=== PATIENT | male | born 1960 | race Caucasian/White ===

== ENCOUNTER → 2017-09-26 | Day surgery (SDC) | payer BC ==
[2017-09-22 12:48] LABS: BASOPHILS # (AUTO) 0.1 (0.0-0.1); EOSINOPHILS # (AUTO) 0.4 (0.0-0.4); EOSINOPHILS % 3.6 % (0.0-6.0); HEMATOCRIT 47.3 % (38.2-49.6); HEMOGLOBIN 16.2 g/dL (14.0-18.0); LYMPHOCYTES # (AUTO) 2.5 (1.0-3.2); LYMPHOCYTES % 21.9 % (18.0-39.1); MEAN CORPUSCULAR HEMOGLOBIN 31.6 pg (28-32); MEAN CORPUSCULAR HGB CONC 34.2 g/dL (31-35); MEAN CORPUSCULAR VOLUME 92.4 fL (81-99); MONOCYTES # (AUTO) 1.3 (0.2-0.8); MONOCYTES % 11.4 % (4.4-11.3); NEUTROPHILS # (AUTO) 6.9 (2.1-6.9); NEUTROPHILS % 61.5 % (38.7-80.0); PLATELET COUNT 236 x10e3/uL (140-360); RED BLOOD COUNT 5.12 x10e6/uL (4.3-5.7); RED CELL DISTRIBUTION WIDTH 13.7 % (11.7-14.4)
--- NOTE | 2017-09-22 13:39 | Diagnostic Imaging Report ---
EXAMINATION: CHEST 2 VIEWS INDICATION: \S\PRE ADMIT \[id number] \S\[id number] COMPARISON: None FINDINGS: PA and lateral views TUBES and LINES: None. LUNGS: Limited by body habitus. Lungs are well inflated. Lungs are clear. There is no evidence of pneumonia or pulmonary edema. PLEURA: No pleural effusion or pneumothorax. HEART AND MEDIASTINUM: The cardiomediastinal silhouette is unremarkable. BONES AND SOFT TISSUES: No acute osseous lesion. Soft tissues are unremarkable. UPPER ABDOMEN: No free air under the diaphragm. IMPRESSION: No acute thoracic abnormality. Signed by: Dr. Alpesh Garg MD on 09/22/2017 1:35 PM
[~2017-09-26] MED LIST: ASPIRIN81 MG; ATORVASTATIN CA10 MG PO; BRILINTA90 MG; CLINDAMYCIN 600MG/D5W 50ML 50 ML IV ONE; DEXAMETHASONE SOD PHOS INJ 4 MG/ML VIAL ONE; FENTANYL CITRATE/PF 100MCG/2 ML INJ ONE; GLYCOPYRROLATE INJ 1MG/ 5 ML SYR ONE; KETAMINE HCL INJ 50 MG/ML 10 ML VIAL ONE; KETOROLAC TROMETHAMINE 30 MG/ML VIAL ONE; LIDOCAINE HCL 2% LOCAL INJ 5 ML SDV VIAL INJ ONE; LOSARTAN POTASS25 MG; METOPROLOL; MIDAZOLAM HCL 2 MG/2 ML VIAL ONE; ONDANSETRON HCL INJ 2 MG/ML VIAL ONE; PHENTERMINE HCL15 MG; PROPOFOL IV EMULSION 10 MG/ML 20 ML VIAL ONE; SEVOFLURANE INHAL SOLN 250 ML PEN BTL ONE; TAMSULOSIN HCL0.4 MG
--- NOTE | 2017-09-26 10:41 | Operative Report ---
DATE OF PROCEDURE: September 26, 2017 [employer]: Jeremy Dorantes PA-C The patient was brought to the operating room for induction of anesthesia. Throughout this case, my PA's assistance was necessary for retraction of soft tissue and positioning of the extremity. This allows for efficient and technically successful execution of the operation and is considered medically necessary. PREOPERATIVE DIAGNOSIS: Bilateral carpal tunnel syndrome. POSTOPERATIVE DIAGNOSIS: Bilateral carpal tunnel syndrome. PROCEDURE: Bilateral endoscopic carpal tunnel release. INDICATIONS: The patient is a 56-year-old gentleman with clinic signs and symptoms consistent with bilateral carpal tunnel syndrome. He has failed conservative management and would like to proceed with definitive intervention. The risks and benefits of the procedure have been explained. He states he understands and wishes to proceed. DESCRIPTION OF PROCEDURE: The patient was brought to the operating room and placed under general anesthetic. Both upper extremities were prepped and draped in a sterile manner. Initial attention was directed towards the right side. A preoperative time out was performed. Extremity was exsanguinated, and a proximal tourniquet was inflated to 250 mmHg. An incision was made over the flexion crease of the right wrist. The palmaris longus was retracted to the radial side of the wound. The flexor retinaculum was elevated and incised. An elevator was used to tease the tenosynovium off of the undersurface of the transverse carpal ligament. Dilators were placed, and the hook of the hamate was palpated. The Micro[employer] endoscope was then placed into the carpal tunnel. The undersurface of the transverse carpal ligament was cleanly visualized without evidence of soft-tissue interposition. The knife was deployed, and the ligament was cut from distal to proximal. I made sure that a full-thickness cut was accomplished. The proximal retinaculum was incised under direct visualization with a pair of tenotomy scissors. The incision was closed with 2 interrupted nylon stitches. A sterile bandage was applied. The tourniquet was deflated. The same procedure was then performed on the left side. The patient was then extubated and transported to the recovery room in stable condition. There was no blood loss, and all needle and sponge counts were correct. Job#: [id number]
== END | disposition home or self-care (01) ==
LOC: OR 08:17
PROVIDERS: ATTEND Specialist
DX: G56.03 Carpal tunnel syndrome, bilateral upper limbs (principal); G47.33 Obstructive sleep apnea (adult) (pediatric); I25.10 Atherosclerotic heart disease of native coronary artery without angina pectoris; I25.2 Old myocardial infarction; R00.1 Bradycardia, unspecified; Z88.0 Allergy status to penicillin; Z01.810 Encounter for preprocedural cardiovascular examination; Z01.812 Encounter for preprocedural laboratory examination; Z01.818 Encounter for other preprocedural examination; Z79.82 Long term (current) use of aspirin; Z68.38 Body mass index [BMI] 38.0-38.9, adult; Z95.5 Presence of coronary angioplasty implant and graft; Z87.891 Personal history of nicotine dependence
CPT/HCPCS: 29848; 36415; 71046; 85025; 93005; J1100; J1885; J2001; J2250; J2405; J3490

== ENCOUNTER → 2020-04-28 | Day surgery (SDC) | payer BC ==
[2020-04-23 11:54] LABS: BASOPHILS # (AUTO) 0.1 (0.0-0.1); BASOPHILS % 1.2 % (0.0-1.0); EOSINOPHILS # (AUTO) 0.2 (0.0-0.4); EOSINOPHILS % 2.1 % (0.0-6.0); HEMATOCRIT 51.3 % (38.2-49.6); HEMOGLOBIN 17.5 g/dL (14.0-18.0); LYMPHOCYTES # (AUTO) 2.4 (1.0-3.2); LYMPHOCYTES % 20.9 % (18.0-39.1); MEAN CORPUSCULAR HEMOGLOBIN 32.4 pg (28-32); MEAN CORPUSCULAR HGB CONC 34.1 g/dL (31-35); MONOCYTES # (AUTO) 1.2 (0.2-0.8); MONOCYTES % 10.6 % (4.4-11.3); NEUTROPHILS # (AUTO) 7.4 (2.1-6.9); NEUTROPHILS % 64.2 % (38.7-80.0); PLATELET COUNT 246 x10e3/uL (140-360); RED CELL DISTRIBUTION WIDTH 14.6 % (11.7-14.4)
[~2020-04-28] MED LIST changes: +BUPIVACAINE HCL 0.5% INJ 30 ML VIAL INJ ONE; -CLINDAMYCIN 600MG/D5W 50ML 50 ML IV ONE; +CLINDAMYCIN PHOS 900MG/ 50ML 50 ML IV ONE; -FENTANYL CITRATE/PF 100MCG/2 ML INJ ONE; -GLYCOPYRROLATE INJ 1MG/ 5 ML SYR ONE; +HYDROCODON-ACE1 EA11 PO; -KETAMINE HCL INJ 50 MG/ML 10 ML VIAL ONE; -LOSARTAN POTASS25 MG; +LOSARTAN POTASS25 MG PO; -METOPROLOL; +METOPROLOL PO; -MIDAZOLAM HCL 2 MG/2 ML VIAL ONE; +MUPIROCIN 2% OINT 22 GM TUBE ONE; -ONDANSETRON HCL INJ 2 MG/ML VIAL ONE; +ONDANSETRON HCL INJ 2MG/ML 2ML 2 MG/ML VIAL ONE; +PLAVIX75 MG PO; -TAMSULOSIN HCL0.4 MG; +TAMSULOSIN HCL0.4 MG PO; +ULTRAM 50MG50 MG PO; +ZOLPIDEM TARTRAT5 MG PO
[2020-04-28 09:45] VITALS: BP 154/91
== END | disposition home or self-care (01) ==
LOC: OR 05:55
PROVIDERS: ATTEND Plastic Surgery
DX: M65.332 Trigger finger, left middle finger (principal); M65.341 Trigger finger, right ring finger; G47.33 Obstructive sleep apnea (adult) (pediatric); I25.2 Old myocardial infarction; I10 Essential (primary) hypertension; E78.5 Hyperlipidemia, unspecified; Z88.6 Allergy status to analgesic agent; Z88.0 Allergy status to penicillin; Z01.810 Encounter for preprocedural cardiovascular examination; Z01.812 Encounter for preprocedural laboratory examination; Z01.818 Encounter for other preprocedural examination; Z20.822 Contact with and (suspected) exposure to COVID-19; Z79.02 Long term (current) use of antithrombotics/antiplatelets; Z85.47 Personal history of malignant neoplasm of testis
CPT/HCPCS: 26055 ×2; 36415; 71046; 85025; 93005; U0002; J1100; J1885; J2001; J2405

== ENCOUNTER 2021-08-21 19:14 | Inpatient (IN) | payer BC ==
[~2021-08-21] VITALS: Ht 167.6 cm; Wt 124.9 kg
[~2021-08-21 19:14] MED LIST changes: -BUPIVACAINE HCL 0.5% INJ 30 ML VIAL INJ ONE; -CLINDAMYCIN PHOS 900MG/ 50ML 50 ML IV ONE; -DEXAMETHASONE SOD PHOS INJ 4 MG/ML VIAL ONE; -KETOROLAC TROMETHAMINE 30 MG/ML VIAL ONE; -LIDOCAINE HCL 2% LOCAL INJ 5 ML SDV VIAL INJ ONE; -MUPIROCIN 2% OINT 22 GM TUBE ONE; -ONDANSETRON HCL INJ 2MG/ML 2ML 2 MG/ML VIAL ONE; -PROPOFOL IV EMULSION 10 MG/ML 20 ML VIAL ONE; -SEVOFLURANE INHAL SOLN 250 ML PEN BTL ONE
[2021-08-21] MEDS ORDERED: AMIODARONE HCL 150 MG/100 ML BAG IV ONE (19:45)
[2021-08-21 19:59] LABS: BASOPHILS # (AUTO) 0.1 (0.0-0.1); BASOPHILS % 0.3 % (0.0-1.0); EOSINOPHILS # (AUTO) 0.1 (0.0-0.4); EOSINOPHILS % 0.3 % (0.0-6.0); HEMATOCRIT 46.3 % (38.2-49.6); HEMOGLOBIN 15.6 g/dL (14.0-18.0); LYMPHOCYTES # (AUTO) 1.2 (1.0-3.2); LYMPHOCYTES % 6.3 % (18.0-39.1); MEAN CORPUSCULAR HEMOGLOBIN 31.2 pg (28-32); MEAN CORPUSCULAR HGB CONC 33.7 g/dL (31-35); MEAN CORPUSCULAR VOLUME 92.6 fL (81-99); MONOCYTES # (AUTO) 1.4 (0.2-0.8); NEUTROPHILS # (AUTO) 16.4 (2.1-6.9); NEUTROPHILS % 83.9 % (38.7-80.0); PLATELET COUNT 207 x10e3/uL (140-360); RED CELL DISTRIBUTION WIDTH 16.2 % (11.7-14.4)
[2021-08-21 20:19] LABS: ALBUMIN 2.4 g/dL (3.5-5.0); ALBUMIN/GLOBULIN RATIO 0.6 (0.8-2.0); ANION GAP 15.9 mmol/L (8-16); CALCIUM 8.4 mg/dL (8.4-10.2); CREATININE, SERUM 0.85 mg/dL (0.72-1.25); POTASSIUM 3.9 mmol/L (3.5-5.1)
[2021-08-21 20:25] LABS: CREATINE KINASE MB 7.7 ng/mL (0-5.0)
[2021-08-21] MEDS: Vancomycin IV 1 GM in SODIUM CHLORIDE 0.9% 250ML 250 ML IV SCH (20:39)
[2021-08-21 20:54] LABS: INR 1.03; PARTIAL THROMBOPLASTIN TIME 28.1 seconds (23.8-35.5); PROTHROMBIN TIME 14.4 seconds (11.9-14.5)
[2021-08-21] MEDS ORDERED: AMIODARONE 900MG 500 ML IV ONE (20:59)
[2021-08-21] MEDS: AMIODARONE 900MG 900 MG in Premix Bag 1 BAG IV SCH ×2 (21:03→23:11)
[2021-08-21] MEDS ORDERED: ONDANSETRON HCL INJ 2MG/ML 2ML 2 MG/ML VIAL IV PRN (21:15)
[2021-08-21] MEDS ORDERED: SODIUM CHLORIDE FLUSH 10 ML SYR INJ PRN (21:15)
[2021-08-21] MEDS ORDERED: ACETAMINOPHEN 325 MG TAB PO PRN (21:15)
[2021-08-21] MEDS: ENOXAPARIN SODIUM INJ 100 MG/ML SYR SC SCH (23:10)
[2021-08-22] VITALS (26 sets, daily range): BP systolic 89–173; BP diastolic 62–127
[2021-08-22 05:28] LABS: BASOPHILS # (AUTO) 0.1 (0.0-0.1); BASOPHILS % 0.5 % (0.0-1.0); EOSINOPHILS % 0.1 % (0.0-6.0); HEMATOCRIT 46.4 % (38.2-49.6); HEMOGLOBIN 15.8 g/dL (14.0-18.0); LYMPHOCYTES # (AUTO) 1.2 (1.0-3.2); LYMPHOCYTES % 6.5 % (18.0-39.1); MEAN CORPUSCULAR HEMOGLOBIN 31.3 pg (28-32); MEAN CORPUSCULAR HGB CONC 34.1 g/dL (31-35); MEAN CORPUSCULAR VOLUME 91.9 fL (81-99); MONOCYTES # (AUTO) 1.4 (0.2-0.8); MONOCYTES % 7.3 % (4.4-11.3); NEUTROPHILS # (AUTO) 15.6 (2.1-6.9); NEUTROPHILS % 83.5 % (38.7-80.0); PLATELET COUNT 239 x10e3/uL (140-360); RED BLOOD COUNT 5.05 x10e6/uL (4.3-5.7)
[2021-08-22 05:57] LABS: ALBUMIN 2.3 g/dL (3.5-5.0); ALBUMIN/GLOBULIN RATIO 0.5 (0.8-2.0); ANION GAP 17.7 mmol/L (8-16); CALCIUM 8.5 mg/dL (8.4-10.2); CHOL/HDL RATIO 3.2 (3.9-4.7); CREATININE, SERUM 0.95 mg/dL (0.72-1.25); POTASSIUM 3.7 mmol/L (3.5-5.1)
[2021-08-22 06:21] LABS: CREATINE KINASE MB 6.2 ng/mL (0-5.0)
[2021-08-22] MEDS ORDERED: TRAMADOL HCL 50 MG TAB PO PRN (08:00)
[2021-08-22] MEDS ORDERED: HYDROCODONE/APAP 5MG-325MG TAB PO PRN (08:00)
[2021-08-22] MEDS: TAMSULOSIN HCL 0.4 MG CAP PO SCH (08:54)
[2021-08-22] MEDS: Vancomycin IV 1 GM in SODIUM CHLORIDE 0.9% 250ML 250 ML IV SCH ×2 (08:54→20:02)
[2021-08-22] MEDS: CLOPIDOGREL BISULFATE 75 MG TAB PO SCH (08:55)
[2021-08-22] MEDS ORDERED: METOPROLOL TARTRATE 25 MG TAB PO SCH (09:00)
[2021-08-22] MEDS: ENOXAPARIN SODIUM INJ 100 MG/ML SYR SC SCH ×2 (10:00→21:17)
[2021-08-22] MEDS: METOPROLOL TARTRATE 25 MG TAB PO SCH ×2 (14:01→19:14)
[2021-08-22] MEDS ORDERED: ZOLPIDEM TARTRATE 5 MG TAB PO SCH (21:00)
[2021-08-22] MEDS: LOSARTAN POTASSIUM 25 MG TAB PO SCH (21:00)
[2021-08-22] MEDS ORDERED: ATORVASTATIN 10 MG TAB PO SCH (21:00)
[2021-08-22] MEDS ORDERED: AMIODARONE 900MG 500 ML IV ONE (22:33)
[2021-08-22] MEDS ORDERED: TEMAZEPAM 7.5 MG CAP PO PRN (23:00)
[2021-08-23] VITALS (24 sets, daily range): BP systolic 104–161; BP diastolic 70–130
[2021-08-23] MEDS: METOPROLOL TARTRATE 25 MG TAB PO SCH ×4 (00:54→18:15)
[2021-08-23 05:09] LABS: BASOPHILS # (AUTO) 0.1 (0.0-0.1); BASOPHILS % 0.5 % (0.0-1.0); EOSINOPHILS # (AUTO) 0.1 (0.0-0.4); EOSINOPHILS % 0.5 % (0.0-6.0); HEMATOCRIT 44.7 % (38.2-49.6); HEMOGLOBIN 15.1 g/dL (14.0-18.0); LYMPHOCYTES # (AUTO) 1.5 (1.0-3.2); LYMPHOCYTES % 8.6 % (18.0-39.1); MEAN CORPUSCULAR HEMOGLOBIN 30.9 pg (28-32); MEAN CORPUSCULAR HGB CONC 33.8 g/dL (31-35); MEAN CORPUSCULAR VOLUME 91.6 fL (81-99); MONOCYTES # (AUTO) 1.2 (0.2-0.8); MONOCYTES % 6.9 % (4.4-11.3); NEUTROPHILS # (AUTO) 13.8 (2.1-6.9); NEUTROPHILS % 81.4 % (38.7-80.0); PLATELET COUNT 231 x10e3/uL (140-360); RED BLOOD COUNT 4.88 x10e6/uL (4.3-5.7)
[2021-08-23 05:31] LABS: ALBUMIN 2.2 g/dL (3.5-5.0); ALBUMIN/GLOBULIN RATIO 0.6 (0.8-2.0); ANION GAP 14.9 mmol/L (8-16); CREATININE, SERUM 0.78 mg/dL (0.72-1.25); MAGNESIUM 1.8 MG/DL (1.3-2.1); POTASSIUM 3.9 mmol/L (3.5-5.1)
[2021-08-23] MEDS ORDERED: FUROSEMIDE INJ 10 MG/ML 2 ML VIAL IV SCH (06:00)
[2021-08-23] MEDS: POTASSIUM CHLORIDE 20 MEQ TAB CR PO SCH ×2 (06:59→18:12)
[2021-08-23 07:29] LABS: CREATINE KINASE MB 4.3 ng/mL (0-5.0)
[2021-08-23] MEDS: TAMSULOSIN HCL 0.4 MG CAP PO SCH (09:24)
[2021-08-23] MEDS: CLOPIDOGREL BISULFATE 75 MG TAB PO SCH (09:24)
[2021-08-23] MEDS: ENOXAPARIN SODIUM INJ 100 MG/ML SYR SC SCH ×2 (09:25→21:27)
[2021-08-23] MEDS: HYDROCODONE/APAP 5MG-325MG TAB PO PRN ×2 (09:25→22:09)
[2021-08-23] MEDS: Vancomycin IV 1 GM in SODIUM CHLORIDE 0.9% 250ML 250 ML IV SCH (09:58)
[2021-08-23] MEDS ORDERED: SODIUM CHLORIDE 0.9% 250ML 250 ML ONE ×2 (10:16→21:32)
[2021-08-23] MEDS: Vancomycin IV 1.5 GM in SODIUM CHLORIDE 0.9% 250ML 300 ML IV SCH ×2 (10:38→22:45)
[2021-08-23] MEDS ORDERED: IOPAMIDOL 370 MG/ML 100 ML INFUS..BTL INJ ONE (11:21)
[2021-08-23 14:36] LABS: CREATINE KINASE MB 3.8 ng/mL (0-5.0)
[2021-08-23] MEDS: FUROSEMIDE INJ 10 MG/ML 4 ML VIAL IV SCH ×2 (16:00→21:32)
[2021-08-23] MEDS ORDERED: DIGOXIN INJ 0.25 MG/ML 2 ML AMP IV ONE (16:45)
[2021-08-23] MEDS ORDERED: AMIODARONE 900MG 500 ML IV SCH (17:15)
[2021-08-23] MEDS: LOSARTAN POTASSIUM 25 MG TAB PO SCH (21:31)
[2021-08-23] MEDS: ATORVASTATIN 40 MG TAB PO SCH (21:31)
[2021-08-23] MEDS: TEMAZEPAM 15 MG CAP PO PRN (22:10)
[2021-08-23] MEDS: METOPROLOL TARTRATE 50 MG TAB PO SCH ×2 (22:52→23:38)
[2021-08-24] VITALS (20 sets, daily range): BP systolic 107–147; BP diastolic 58–108
[2021-08-24] MEDS: AMIODARONE 900MG 500 ML IV SCH (04:13)
[2021-08-24] MEDS: HYDROCODONE/APAP 5MG-325MG TAB PO PRN ×2 (04:13→22:43)
[2021-08-24] MEDS: FUROSEMIDE INJ 10 MG/ML 4 ML VIAL IV SCH ×3 (06:35→21:30)
[2021-08-24] MEDS: KETOROLAC TROMETHAMINE 30 MG/ML VIAL IV SCH ×3 (06:36→21:34)
[2021-08-24] MEDS: POTASSIUM CHLORIDE 20 MEQ TAB CR PO SCH ×2 (06:36→17:38)
[2021-08-24 07:52] LABS: BASOPHILS # (AUTO) 0.1 (0.0-0.1); BASOPHILS % 0.7 % (0.0-1.0); EOSINOPHILS # (AUTO) 0.1 (0.0-0.4); EOSINOPHILS % 0.6 % (0.0-6.0); HEMATOCRIT 48.5 % (38.2-49.6); HEMOGLOBIN 16.2 g/dL (14.0-18.0); LYMPHOCYTES # (AUTO) 1.6 (1.0-3.2); LYMPHOCYTES % 8.6 % (18.0-39.1); MEAN CORPUSCULAR HEMOGLOBIN 30.7 pg (28-32); MEAN CORPUSCULAR HGB CONC 33.4 g/dL (31-35); MEAN CORPUSCULAR VOLUME 91.9 fL (81-99); MONOCYTES % 5.5 % (4.4-11.3); NEUTROPHILS # (AUTO) 14.8 (2.1-6.9); NEUTROPHILS % 79.4 % (38.7-80.0); PLATELET COUNT 260 x10e3/uL (140-360); RED BLOOD COUNT 5.28 x10e6/uL (4.3-5.7); RED CELL DISTRIBUTION WIDTH 16.2 % (11.7-14.4)
[2021-08-24 08:11] LABS: ALBUMIN 2.4 g/dL (3.5-5.0); ALBUMIN/GLOBULIN RATIO 0.5 (0.8-2.0); ANION GAP 15.1 mmol/L (8-16); CALCIUM 8.6 mg/dL (8.4-10.2); CREATININE, SERUM 0.98 mg/dL (0.72-1.25); MAGNESIUM 1.9 MG/DL (1.3-2.1); POTASSIUM 4.1 mmol/L (3.5-5.1)
[2021-08-24] MEDS: CLOPIDOGREL BISULFATE 75 MG TAB PO SCH (08:21)
[2021-08-24] MEDS: TAMSULOSIN HCL 0.4 MG CAP PO SCH (08:21)
[2021-08-24] MEDS: ENOXAPARIN SODIUM INJ 100 MG/ML SYR SC SCH ×2 (08:22→21:34)
[2021-08-24] MEDS: BALSAM PERU/CASTOR OIL 60 GM OINT...G. TP SCH (08:22)
[2021-08-24] MEDS: Vancomycin IV 1.5 GM in SODIUM CHLORIDE 0.9% 250ML 300 ML IV SCH ×2 (10:49→22:42)
[2021-08-24] MEDS ORDERED: DIGOXIN INJ 0.25 MG/ML 2 ML AMP IV ONE (11:00)
[2021-08-24] MEDS: METOPROLOL TARTRATE 50 MG TAB PO SCH ×4 (13:08→22:43)
[2021-08-24] MEDS: ATORVASTATIN 40 MG TAB PO SCH (21:34)
[2021-08-24] MEDS: TEMAZEPAM 15 MG CAP PO PRN (22:44)
[2021-08-25] VITALS (22 sets, daily range): BP systolic 112–153; BP diastolic 56–108
[2021-08-25 05:00] LABS: BASOPHILS % 0.2 % (0.0-1.0); EOSINOPHILS # (AUTO) 0.1 (0.0-0.4); EOSINOPHILS % 0.8 % (0.0-6.0); HEMATOCRIT 50.3 % (38.2-49.6); HEMOGLOBIN 16.6 g/dL (14.0-18.0); LYMPHOCYTES # (AUTO) 1.9 (1.0-3.2); LYMPHOCYTES % 10.6 % (18.0-39.1); MEAN CORPUSCULAR VOLUME 93.8 fL (81-99); MONOCYTES # (AUTO) 1.1 (0.2-0.8); MONOCYTES % 6.1 % (4.4-11.3); NEUTROPHILS # (AUTO) 13.1 (2.1-6.9); NEUTROPHILS % 74.2 % (38.7-80.0); PLATELET COUNT 310 x10e3/uL (140-360); RED BLOOD COUNT 5.36 x10e6/uL (4.3-5.7); RED CELL DISTRIBUTION WIDTH 16.4 % (11.7-14.4)
[2021-08-25 05:23] LABS: ANION GAP 15.4 mmol/L (8-16); CALCIUM 8.6 mg/dL (8.4-10.2); CREATININE, SERUM 1.04 mg/dL (0.72-1.25); MAGNESIUM 2.2 MG/DL (1.3-2.1); POTASSIUM 4.4 mmol/L (3.5-5.1)
[2021-08-25] MEDS: FUROSEMIDE INJ 10 MG/ML 4 ML VIAL IV SCH ×3 (05:36→19:07)
[2021-08-25] MEDS: KETOROLAC TROMETHAMINE 30 MG/ML VIAL IV SCH ×3 (05:37→21:51)
[2021-08-25] MEDS: METOPROLOL TARTRATE 50 MG TAB PO SCH ×4 (05:37→23:38)
[2021-08-25] MEDS: POTASSIUM CHLORIDE 20 MEQ TAB CR PO SCH ×2 (05:37→19:06)
[2021-08-25] MEDS: AMIODARONE 900MG 500 ML IV SCH (05:38)
[2021-08-25] MEDS: CLOPIDOGREL BISULFATE 75 MG TAB PO SCH (09:57)
[2021-08-25] MEDS: ENOXAPARIN SODIUM INJ 100 MG/ML SYR SC SCH ×2 (09:57→21:08)
[2021-08-25] MEDS: TAMSULOSIN HCL 0.4 MG CAP PO SCH (09:57)
[2021-08-25] MEDS: BALSAM PERU/CASTOR OIL 60 GM OINT...G. TP SCH (09:58)
[2021-08-25] MEDS ORDERED: ALBUTEROL SULF 0.083% NEB SOLN 3 ML NEB NEB ONE (10:45)
[2021-08-25] MEDS: Vancomycin IV 1.5 GM in SODIUM CHLORIDE 0.9% 250ML 300 ML IV SCH ×2 (11:59→23:39)
[2021-08-25] MEDS ORDERED: DIGOXIN INJ 0.25 MG/ML 2 ML AMP IV ONE (17:00)
[2021-08-25] MEDS: DILTIAZEM HCL 30 MG TAB PO SCH (17:40)
[2021-08-25] MEDS: ATORVASTATIN 40 MG TAB PO SCH (21:08)
[2021-08-25] MEDS: TEMAZEPAM 15 MG CAP PO PRN (23:35)
[2021-08-26] VITALS (9 sets, daily range): BP systolic 123–159; BP diastolic 69–110
[2021-08-26 06:34] LABS: BASOPHILS # (AUTO) 0.2 (0.0-0.1); BASOPHILS % 0.8 % (0.0-1.0); EOSINOPHILS # (AUTO) 0.2 (0.0-0.4); HEMATOCRIT 46.7 % (38.2-49.6); HEMOGLOBIN 15.9 g/dL (14.0-18.0); LYMPHOCYTES # (AUTO) 1.7 (1.0-3.2); LYMPHOCYTES % 9.5 % (18.0-39.1); MEAN CORPUSCULAR HEMOGLOBIN 31.3 pg (28-32); MEAN CORPUSCULAR VOLUME 91.9 fL (81-99); MONOCYTES # (AUTO) 1.1 (0.2-0.8); MONOCYTES % 6.1 % (4.4-11.3); NEUTROPHILS # (AUTO) 13.1 (2.1-6.9); NEUTROPHILS % 73.8 % (38.7-80.0); PLATELET COUNT 304 x10e3/uL (140-360); RED BLOOD COUNT 5.08 x10e6/uL (4.3-5.7); RED CELL DISTRIBUTION WIDTH 16.2 % (11.7-14.4)
[2021-08-26] MEDS: KETOROLAC TROMETHAMINE 30 MG/ML VIAL IV SCH ×3 (06:56→22:11)
[2021-08-26] MEDS: METOPROLOL TARTRATE 50 MG TAB PO SCH ×3 (06:57→20:58)
[2021-08-26] MEDS: FUROSEMIDE INJ 10 MG/ML 4 ML VIAL IV SCH ×3 (06:57→18:31)
[2021-08-26 06:58] LABS: ALBUMIN 2.4 g/dL (3.5-5.0); ALBUMIN/GLOBULIN RATIO 0.6 (0.8-2.0); ANION GAP 13.1 mmol/L (8-16); CALCIUM 8.3 mg/dL (8.4-10.2); CREATININE, SERUM 0.97 mg/dL (0.72-1.25); MAGNESIUM 1.9 MG/DL (1.3-2.1); POTASSIUM 4.1 mmol/L (3.5-5.1)
[2021-08-26] MEDS: POTASSIUM CHLORIDE 20 MEQ TAB CR PO SCH ×2 (06:58→18:31)
[2021-08-26] MEDS: TAMSULOSIN HCL 0.4 MG CAP PO SCH (09:58)
[2021-08-26] MEDS: DILTIAZEM HCL 30 MG TAB PO SCH ×2 (09:59→16:36)
[2021-08-26] MEDS: CLOPIDOGREL BISULFATE 75 MG TAB PO SCH (09:59)
[2021-08-26] MEDS: ENOXAPARIN SODIUM INJ 100 MG/ML SYR SC SCH ×2 (09:59→20:58)
[2021-08-26] MEDS: BALSAM PERU/CASTOR OIL 60 GM OINT...G. TP SCH (09:59)
[2021-08-26] MEDS ORDERED: DILTIAZEM HCL 30 MG TAB PO SCH (10:45)
[2021-08-26] MEDS: Vancomycin IV 1.5 GM in SODIUM CHLORIDE 0.9% 250ML 300 ML IV SCH ×2 (12:51→23:14)
[2021-08-26] MEDS ORDERED: AMIODARONE HCL 200 MG TAB PO SCH ×2 (14:45→17:00)
[2021-08-26] MEDS: AMIODARONE HCL 200 MG TAB PO SCH ×2 (16:07→20:57)
[2021-08-26] MEDS: ATORVASTATIN 40 MG TAB PO SCH (20:57)
[2021-08-26] MEDS: TEMAZEPAM 15 MG CAP PO PRN (23:15)
[2021-08-26] MEDS: HYDROCODONE/APAP 5MG-325MG TAB PO PRN (23:15)
[2021-08-27] VITALS (13 sets, daily range): BP systolic 103–137; BP diastolic 55–107
[2021-08-27] MEDS: KETOROLAC TROMETHAMINE 30 MG/ML VIAL IV SCH ×3 (06:13→22:48)
[2021-08-27] MEDS: FUROSEMIDE INJ 10 MG/ML 4 ML VIAL IV SCH ×3 (06:14→17:46)
[2021-08-27] MEDS: POTASSIUM CHLORIDE 20 MEQ TAB CR PO SCH ×2 (06:15→17:46)
[2021-08-27 06:33] LABS: BASOPHILS # (AUTO) 0.2 (0.0-0.1); BASOPHILS % 0.8 % (0.0-1.0); EOSINOPHILS # (AUTO) 0.1 (0.0-0.4); EOSINOPHILS % 0.8 % (0.0-6.0); HEMATOCRIT 46.5 % (38.2-49.6); HEMOGLOBIN 15.2 g/dL (14.0-18.0); LYMPHOCYTES # (AUTO) 1.7 (1.0-3.2); MEAN CORPUSCULAR HEMOGLOBIN 31.2 pg (28-32); MEAN CORPUSCULAR HGB CONC 32.7 g/dL (31-35); MEAN CORPUSCULAR VOLUME 95.5 fL (81-99); MONOCYTES # (AUTO) 0.9 (0.2-0.8); NEUTROPHILS # (AUTO) 14.5 (2.1-6.9); NEUTROPHILS % 77.8 % (38.7-80.0); PLATELET COUNT 322 x10e3/uL (140-360); RED BLOOD COUNT 4.87 x10e6/uL (4.3-5.7); RED CELL DISTRIBUTION WIDTH 16.4 % (11.7-14.4)
[2021-08-27 07:33] LABS: ALBUMIN 2.5 g/dL (3.5-5.0); ALBUMIN/GLOBULIN RATIO 0.6 (0.8-2.0); ANION GAP 14.3 mmol/L (8-16); CALCIUM 8.3 mg/dL (8.4-10.2); CREATININE, SERUM 1.04 mg/dL (0.72-1.25); POTASSIUM 4.3 mmol/L (3.5-5.1)
[2021-08-27] MEDS: DILTIAZEM HCL 30 MG TAB PO SCH ×2 (08:13→17:33)
[2021-08-27] MEDS: AMIODARONE HCL 200 MG TAB PO SCH ×2 (08:13→20:03)
[2021-08-27] MEDS: TAMSULOSIN HCL 0.4 MG CAP PO SCH (08:14)
[2021-08-27] MEDS: ENOXAPARIN SODIUM INJ 100 MG/ML SYR SC SCH ×2 (08:14→20:14)
[2021-08-27] MEDS: METOPROLOL TARTRATE 50 MG TAB PO SCH ×2 (08:14→20:04)
[2021-08-27] MEDS: CLOPIDOGREL BISULFATE 75 MG TAB PO SCH (08:14)
[2021-08-27] MEDS: BALSAM PERU/CASTOR OIL 60 GM OINT...G. TP SCH (08:14)
[2021-08-27] MEDS: Vancomycin IV 1.5 GM in SODIUM CHLORIDE 0.9% 250ML 300 ML IV SCH ×2 (12:25→22:13)
[2021-08-27] MEDS: ATORVASTATIN 40 MG TAB PO SCH (20:04)
[2021-08-27] MEDS: TEMAZEPAM 15 MG CAP PO PRN (22:44)
[2021-08-28] VITALS (13 sets, daily range): BP systolic 107–163; BP diastolic 54–110
[2021-08-28] MEDS ORDERED: METHYLPREDNISOLONE SOD SUCC 40 MG/ML VIAL 1ML IV ONE (03:45)
[2021-08-28] MEDS: FUROSEMIDE INJ 10 MG/ML 4 ML VIAL IV SCH ×3 (05:38→17:34)
[2021-08-28 06:05] LABS: BASOPHILS # (AUTO) 0.1 (0.0-0.1); BASOPHILS % 0.7 % (0.0-1.0); EOSINOPHILS # (AUTO) 0.1 (0.0-0.4); EOSINOPHILS % 0.5 % (0.0-6.0); HEMATOCRIT 44.8 % (38.2-49.6); LYMPHOCYTES # (AUTO) 1.3 (1.0-3.2); LYMPHOCYTES % 7.1 % (18.0-39.1); MEAN CORPUSCULAR HEMOGLOBIN 30.9 pg (28-32); MEAN CORPUSCULAR HGB CONC 33.5 g/dL (31-35); MEAN CORPUSCULAR VOLUME 92.4 fL (81-99); MONOCYTES # (AUTO) 0.5 (0.2-0.8); MONOCYTES % 2.7 % (4.4-11.3); NEUTROPHILS # (AUTO) 15.4 (2.1-6.9); NEUTROPHILS % 83.5 % (38.7-80.0); PLATELET COUNT 314 x10e3/uL (140-360); RED BLOOD COUNT 4.85 x10e6/uL (4.3-5.7); RED CELL DISTRIBUTION WIDTH 16.1 % (11.7-14.4)
[2021-08-28] MEDS: KETOROLAC TROMETHAMINE 30 MG/ML VIAL IV SCH ×3 (06:09→21:30)
[2021-08-28] MEDS: POTASSIUM CHLORIDE 20 MEQ TAB CR PO SCH ×2 (06:10→17:31)
[2021-08-28 06:45] LABS: ALBUMIN 2.6 g/dL (3.5-5.0); ALBUMIN/GLOBULIN RATIO 0.7 (0.8-2.0); ANION GAP 12.3 mmol/L (8-16); CALCIUM 8.3 mg/dL (8.4-10.2); CREATININE, SERUM 1.05 mg/dL (0.72-1.25); POTASSIUM 4.3 mmol/L (3.5-5.1)
[2021-08-28] MEDS: DILTIAZEM HCL 30 MG TAB PO SCH ×2 (07:16→17:31)
[2021-08-28] MEDS: TAMSULOSIN HCL 0.4 MG CAP PO SCH (08:41)
[2021-08-28] MEDS: CLOPIDOGREL BISULFATE 75 MG TAB PO SCH (08:41)
[2021-08-28] MEDS: METOPROLOL TARTRATE 50 MG TAB PO SCH ×2 (08:42→21:29)
[2021-08-28] MEDS: AMIODARONE HCL 200 MG TAB PO SCH ×2 (08:42→21:30)
[2021-08-28] MEDS: BALSAM PERU/CASTOR OIL 60 GM OINT...G. TP SCH (08:43)
[2021-08-28] MEDS: ENOXAPARIN SODIUM INJ 100 MG/ML SYR SC SCH ×2 (08:43→21:31)
[2021-08-28] MEDS: Vancomycin IV 1.5 GM in SODIUM CHLORIDE 0.9% 250ML 300 ML IV SCH ×2 (10:10→23:00)
[2021-08-28] MEDS: ATORVASTATIN 40 MG TAB PO SCH (21:30)
[2021-08-28] MEDS: TEMAZEPAM 15 MG CAP PO PRN (23:52)
[2021-08-29] VITALS (8 sets, daily range): BP systolic 99–146; BP diastolic 63–102
[2021-08-29] MEDS ORDERED: SODIUM CHLORIDE 0.9% 250ML 250 ML ONE (04:10)
[2021-08-29] MEDS ORDERED: METHYLPREDNISOLONE SOD SUCC 40 MG/ML VIAL 1ML IV ONE (05:45)
[2021-08-29 05:50] LABS: BASOPHILS # (AUTO) 0.1 (0.0-0.1); BASOPHILS % 0.3 % (0.0-1.0); EOSINOPHILS % 0.1 % (0.0-6.0); HEMATOCRIT 45.6 % (38.2-49.6); HEMOGLOBIN 15.1 g/dL (14.0-18.0); LYMPHOCYTES # (AUTO) 1.6 (1.0-3.2); LYMPHOCYTES % 6.5 % (18.0-39.1); MEAN CORPUSCULAR HEMOGLOBIN 30.9 pg (28-32); MEAN CORPUSCULAR HGB CONC 33.1 g/dL (31-35); MEAN CORPUSCULAR VOLUME 93.3 fL (81-99); MONOCYTES # (AUTO) 1.2 (0.2-0.8); MONOCYTES % 4.7 % (4.4-11.3); NEUTROPHILS # (AUTO) 20.9 (2.1-6.9); NEUTROPHILS % 84.6 % (38.7-80.0); PLATELET COUNT 356 x10e3/uL (140-360); RED BLOOD COUNT 4.89 x10e6/uL (4.3-5.7); RED CELL DISTRIBUTION WIDTH 15.9 % (11.7-14.4)
[2021-08-29] MEDS: FUROSEMIDE INJ 10 MG/ML 4 ML VIAL IV SCH ×3 (05:57→17:00)
[2021-08-29] MEDS: POTASSIUM CHLORIDE 20 MEQ TAB CR PO SCH ×2 (05:59→17:00)
[2021-08-29 06:15] LABS: ALBUMIN 2.6 g/dL (3.5-5.0); ALBUMIN/GLOBULIN RATIO 0.7 (0.8-2.0); ANION GAP 13.2 mmol/L (8-16); CALCIUM 8.4 mg/dL (8.4-10.2); CREATININE, SERUM 1.03 mg/dL (0.72-1.25); POTASSIUM 4.2 mmol/L (3.5-5.1)
[2021-08-29] MEDS: DILTIAZEM HCL 30 MG TAB PO SCH ×2 (08:42→16:59)
[2021-08-29] MEDS: TAMSULOSIN HCL 0.4 MG CAP PO SCH (08:43)
[2021-08-29] MEDS: METOPROLOL TARTRATE 50 MG TAB PO SCH ×2 (08:43→21:00)
[2021-08-29] MEDS: CLOPIDOGREL BISULFATE 75 MG TAB PO SCH (08:43)
[2021-08-29] MEDS: AMIODARONE HCL 200 MG TAB PO SCH ×2 (08:44→21:00)
[2021-08-29] MEDS: BALSAM PERU/CASTOR OIL 60 GM OINT...G. TP SCH (09:42)
[2021-08-29] MEDS: Vancomycin IV 1.5 GM in SODIUM CHLORIDE 0.9% 250ML 300 ML IV SCH ×2 (10:32→23:00)
[2021-08-29] MEDS: ATORVASTATIN 40 MG TAB PO SCH (21:00)
[2021-08-30 04:20] VITALS: BP 115/75
[2021-08-30] MEDS: FUROSEMIDE INJ 10 MG/ML 4 ML VIAL IV SCH ×2 (05:29→12:01)
[2021-08-30] MEDS: POTASSIUM CHLORIDE 20 MEQ TAB CR PO SCH (05:29)
[2021-08-30 05:57] LABS: BASOPHILS # (AUTO) 0.1 (0.0-0.1); BASOPHILS % 0.5 % (0.0-1.0); HEMATOCRIT 47.7 % (38.2-49.6); HEMOGLOBIN 16.1 g/dL (14.0-18.0); LYMPHOCYTES # (AUTO) 1.6 (1.0-3.2); LYMPHOCYTES % 6.1 % (18.0-39.1); MEAN CORPUSCULAR HGB CONC 33.8 g/dL (31-35); MEAN CORPUSCULAR VOLUME 91.9 fL (81-99); MONOCYTES # (AUTO) 1.5 (0.2-0.8); MONOCYTES % 5.7 % (4.4-11.3); NEUTROPHILS # (AUTO) 21.5 (2.1-6.9); NEUTROPHILS % 84.3 % (38.7-80.0); PLATELET COUNT 394 x10e3/uL (140-360); RED BLOOD COUNT 5.19 x10e6/uL (4.3-5.7); RED CELL DISTRIBUTION WIDTH 15.9 % (11.7-14.4)
[2021-08-30 07:53] VITALS: BP 130/58
[2021-08-30 07:56] LABS: LYMPHOCYTES % (MANUAL) 5 % (19-48); MONOCYTES % (MANUAL) 3 % (3.4-9.0); MYELOCYTES % (MANUAL) 1 % (0-0); NEUTROPHILS % (MANUAL) 91 % (40-74)
[2021-08-30 07:57] LABS: PLATELET ESTIMATE ADEQUATE; PLATELET MORPHOLOGY COMMENT NORMAL; RBC MORPHOLOGY COMMENT NORMAL
[2021-08-30 08:08] VITALS: BP 130/58
[2021-08-30] MEDS: AMIODARONE HCL 200 MG TAB PO SCH (09:52)
[2021-08-30] MEDS: TAMSULOSIN HCL 0.4 MG CAP PO SCH (09:52)
[2021-08-30] MEDS: CLOPIDOGREL BISULFATE 75 MG TAB PO SCH (09:53)
[2021-08-30] MEDS: DILTIAZEM HCL 30 MG TAB PO SCH ×2 (09:53→16:00)
[2021-08-30] MEDS: METOPROLOL TARTRATE 50 MG TAB PO SCH (09:54)
[2021-08-30] MEDS: BALSAM PERU/CASTOR OIL 60 GM OINT...G. TP SCH (09:54)
[2021-08-30] MEDS ORDERED: ONDANSETRON HCL 4 MG ORAL DISINTEGRATING TAB PO PRN (11:15)
[2021-08-30 11:39] VITALS: BP 121/84
[2021-08-30] MEDS ORDERED: SODIUM CHLORIDE 0.9% 250ML 250 ML ONE (12:04)
[2021-08-30] MEDS ORDERED: DILTIAZEM PO (14:46)
[2021-08-30] MEDS ORDERED: ELIQUIS5 MG PO (14:47)
[2021-08-30 15:55] VITALS: BP 116/75
[2021-08-31] MEDS ORDERED: Vancomycin IV 1 GM in SODIUM CHLORIDE 0.9% 250ML 250 ML IV SCH (09:00)
== END 2021-08-30 16:25 | disposition home or self-care (01) | DRG 871 ==
LOC: ER 19:27 → ERHOLD 21:23 → ICU 23:59 → MED/SURG3 08-28 22:20
PROVIDERS: ADMIT Internal Medicine; ATTEND Internal Medicine
PROC: 3E03329 Introduction of Other Anti-infective into Peripheral Vein, Percutaneous Approach (ICD-10-PCS; 2021-08-21)
PROC: 5A09357 Assistance with Respiratory Ventilation, Less than 24 Consecutive Hours, Continuous Positive Airway Pressure (ICD-10-PCS; 2021-08-22)
PROC: 02HV33Z Insertion of Infusion Device into Superior Vena Cava, Percutaneous Approach (ICD-10-PCS; principal; 2021-08-25)
DX: A41.9 Sepsis, unspecified organism (principal); I50.31 Acute diastolic (congestive) heart failure; L03.116 Cellulitis of left lower limb; Z68.41 Body mass index [BMI] 40.0-44.9, adult; I11.0 Hypertensive heart disease with heart failure; I48.91 Unspecified atrial fibrillation; I25.10 Atherosclerotic heart disease of native coronary artery without angina pectoris; E78.5 Hyperlipidemia, unspecified; N40.0 Benign prostatic hyperplasia without lower urinary tract symptoms; Z95.5 Presence of coronary angioplasty implant and graft; G47.33 Obstructive sleep apnea (adult) (pediatric); E78.2 Mixed hyperlipidemia; E66.01 Morbid (severe) obesity due to excess calories; R60.0 Localized edema; U09.9 Post COVID-19 condition, unspecified; I87.022 Postthrombotic syndrome with inflammation of left lower extremity; I25.2 Old myocardial infarction; Z85.47 Personal history of malignant neoplasm of testis; Z88.5 Allergy status to narcotic agent; Z88.0 Allergy status to penicillin; Z79.890 Hormone replacement therapy; Z20.822 Contact with and (suspected) exposure to COVID-19
CPT/HCPCS: 36415; 36569; 71045; 71260; 80048; 80053; 80061; 80202; 82550; 82553; 83605; 83735; 83880; 84484; 85025; 85610; 85730; 87040; 93005; 93306; 93925; 93970; 94799; 96366; 97139; 99251; 99284; J0692; J1160; J1650; J1885; J1940; J2405; J2920; J3370; J7050; Q9967